=== PATIENT | female | born 1985 | race Two or more races ===

== ENCOUNTER 2020-08-20 20:13 | Inpatient (IN) | payer OTHER ==
[~2020-08-20] VITALS: Ht 165.1 cm; Wt 87.1 kg
[2020-08-21] MEDS ORDERED: ATABEX DHA 200200 MG (08:26)
[2020-08-21] MEDS ORDERED: ONDANSETRON HCL4 MG (08:26)
[2020-08-21] MEDS ORDERED: ATABEX OB TABL1 EACH (08:27)
== END 2020-08-27 10:51 | disposition home or self-care (01) | DRG 833 ==
LOC: OB/GYN 20:13
PROVIDERS: ADMIT Obstetrics & Gynecology; ATTEND Obstetrics & Gynecology
PROC: 4A1HXFZ Monitoring of Products of Conception, Cardiac Rhythm, External Approach (ICD-10-PCS; principal; 2020-08-20)
DX: O21.0 Mild hyperemesis gravidarum (principal); O99.281 Endocrine, nutritional and metabolic diseases complicating pregnancy, first trimester; E86.0 Dehydration; Z3A.01 Less than 8 weeks gestation of pregnancy
CPT/HCPCS: 240

== ENCOUNTER 2020-09-05 19:51 | Emergency (ER) | payer OTHER ==
[~2020-09-05] VITALS: Ht 167.6 cm; Wt 82.1 kg
[~2020-09-05 19:51] MED LIST: ATABEX DHA 200200 MG; ATABEX OB TABL1 EACH; ONDANSETRON HCL4 MG
[2020-09-05] MEDS ORDERED: ZOFRAN8 MG (20:06)
== END 2020-09-05 21:22 | disposition home or self-care (01) ==
LOC: ER 19:51
DX: K59.09 Other constipation (principal)

== ENCOUNTER → 2020-11-25 | Outpatient (CLI) | payer OTHER ==
[~2020-11-25] MED LIST changes: +ZOFRAN8 MG
== END | disposition home or self-care (01) ==
LOC: PRENATAL 09:47
PROVIDERS: ATTEND Obstetrics & Gynecology Maternal & Fetal Medicine
DX: O35.0XX1 Maternal care for (suspected) central nervous system malformation in fetus, fetus 1 (principal); O35.3XX1 Maternal care for (suspected) damage to fetus from viral disease in mother, fetus 1; O98.512 Other viral diseases complicating pregnancy, second trimester; O09.512 Supervision of elderly primigravida, second trimester; Z36.89 Encounter for other specified antenatal screening; Z3A.21 21 weeks gestation of pregnancy

== ENCOUNTER 2021-01-27 14:55 | Outpatient (CLI) | payer OTHER | END 2021-01-27 16:00 | disposition home or self-care (01) | LOC: PRENATAL 14:55 | PROVIDERS: ATTEND Obstetrics & Gynecology Maternal & Fetal Medicine | DX: O26.843 Uterine size-date discrepancy, third trimester (principal); O09.523 Supervision of elderly multigravida, third trimester; Z36.89 Encounter for other specified antenatal screening; Z3A.30 30 weeks gestation of pregnancy ==

== ENCOUNTER 2021-03-26 08:56 | Inpatient (IN) | payer OTHER ==
[~2021-03-26] VITALS: Ht 167.6 cm; Wt 91.6 kg
[2021-03-26] MEDS ORDERED: PRENATAL + DHA1 EAC1 (10:10)
[2021-03-26] MEDS ORDERED: INFED50 MG/ML IM (10:10)
[2021-03-26] MEDS ORDERED: IRON236 MG (10:11)
[2021-03-29] MEDS ORDERED: IBUPROFEN800 MG PO (13:05)
[2021-03-29] MEDS ORDERED: PREPLUS CA-FE1 EACH PO (13:05)
[2021-03-29] MEDS ORDERED: DOCUSATE SODIU100 MG PO (13:05)
[2021-03-29] MEDS ORDERED: SIMETHICONE125 M1 PO (13:05)
[2021-03-29] MEDS ORDERED: FEOSOL325 MG PO (13:05)
== END 2021-03-29 13:50 | disposition home or self-care (01) | DRG 785 ==
LOC: OB/GYN 08:56 → LDR 08:56 → O/R 17:24 → OB/GYN 17:35
PROVIDERS: ADMIT Obstetrics & Gynecology; ATTEND Obstetrics & Gynecology
PROC: 0UB70ZZ Excision of Bilateral Fallopian Tubes, Open Approach (ICD-10-PCS; 2021-03-26)
PROC: 4A1HXFZ Monitoring of Products of Conception, Cardiac Rhythm, External Approach (ICD-10-PCS; 2021-03-26)
PROC: 10D00Z1 Extraction of Products of Conception, Low, Open Approach (ICD-10-PCS; principal; 2021-03-26 16:15)
DX: O34.211 Maternal care for low transverse scar from previous cesarean delivery (principal); O99.02 Anemia complicating childbirth; D64.9 Anemia, unspecified; Z30.2 Encounter for sterilization; Z3A.39 39 weeks gestation of pregnancy; Z37.0 Single live birth